=== PATIENT | female | born 2005 | race Caucasian/White ===

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

== ENCOUNTER 2024-05-04 11:59 | Outpatient (CLI) | payer OTHER | END 2024-05-04 12:00 | disposition home or self-care (01) | LOC: BICULT 11:59 | PROVIDERS: ATTEND Clinical Nurse Specialist Adult Health | DX: R10.2 Pelvic and perineal pain (principal) | CPT/HCPCS: 76856 ==